=== PATIENT | male | born 1940 | race Caucasian/White ===

== ENCOUNTER 2017-03-29 18:28 | Emergency (ER) | payer OTHER ==
[~2017-03-29 18:28] MED LIST: ARIC10TA; CELE40TA; MEMA10
[2017-03-29 19:45] VITALS: BP 153/91; PULSE 89; RESP 18; TEMP 98; O2SAT 96
[2017-03-29 20:51] LABS: AUTOMATED NEUTROPHIL # 6.6 TH/MM3 (1.8-7.7); BASOPHIL % 0.5 % (0.0-2.0); EOSINOPHIL # 0.1 TH/MM3 (0-0.4); HEMATOCRIT 44.4 % (39.0-51.0); HEMO FLAGS DIFF FINAL; LYMPH % 18.4 % (9.0-44.0); LYMPHOCYTE # 1.7 TH/MM3 (1.0-4.8); MEAN CELL VOLUME 92.2 FL (80.0-100.0); MEAN CORPUSCULAR HEMOGLOBIN 31.5 PG (27.0-34.0); MEAN CORPUSCULAR HGB CONC 34.1 % (32.0-36.0); MONO % 8.8 % (0.0-8.0); NEUT % 71.3 % (16.0-70.0); PLATELET COUNT 205 TH/MM3 (150-450); RED BLOOD COUNT 4.82 MIL/MM3 (4.50-5.90); RED CELL DISTRIBUTION WIDTH 13.1 % (11.6-17.2); WHITE BLOOD COUNT 9.2 TH/MM3 (4.0-11.0)
[2017-03-29 20:57] LABS: BLOOD, URINE NEG (NEG); GLUCOSE,URINE NEG (NEG); KETONE, URINE NEG (NEG); NITRITE,URINE NEG (NEG); PH, URINE 5.5 (5.0-8.5); URINE COLOR LIGHT-YELLOW (YELLW/STRAW)
[2017-03-29 20:59] LABS: COMMENT (UR) CULT NOT INDICATED; CULTURE IF INDICATED CULT NOT INDICATED
[2017-03-29 21:09] LABS: ANION GAP 8 MEQ/L (5-15); AST (GOT) 24 U/L (15-37); BICARBONATE 23.7 MEQ/L (21.0-32.0); BLOOD UREA NITROGEN 13 MG/DL (7-18); CHLORIDE 104 MEQ/L (98-107); GLOMERULAR FILTRATION RATE 82 ML/MIN (>89); POTASSIUM 3.8 MEQ/L (3.5-5.1); SODIUM (NA) 136 MEQ/L (136-145)
[2017-03-29 21:11] LABS: ALT (GPT) 42 U/L (12-78)
[2017-03-29 21:12] LABS: ALKALINE PHOSPHATASE 84 U/L (45-117)
--- NOTE | 2017-03-29 21:47 | PD ---
HPI Chief Complaint: Psychiatric Symptoms Time Seen by Provider: 21:43 Travel History International Travel<30 days: No Contact w/Intl Traveler<30days: No Traveled to known affect area: No History of Present Illness HPI 76-year-old male presents under Linder act initiated by the Police Department. According to his paperwork the patient has been not been taking his medication for his diagnosed depression. He has been increasingly irrational towards his and he reportedly garnished a firearm and advised his that she should be scared. The patient reports that he has a history of PTSD, he is prescribed Celexa. He reports that recently he and his went on vacation to [place] and they returned last week. He reports that his was not happy with the condition at the house was in when they arrived home. The verbal argument today stem from the fact that they have another vacation to [facility] coming up in April and the patient's does not want to leave the house and his current condition. He reports that she became increasingly frustrated at him and called the police with the above report. The patient disputes the events of the Linder act. He says that he never garnished any firearm, did not threaten his . He denies any suicidal or homicidal ideation. He denies any drug use. He endorses occasional beer ingestion. He has no other complaints. [facility] Past Medical History Anxiety: Yes Heart Rhythm Problems: No Cardiac Catheterization: No Cardiovascular Problems: No High Cholesterol: No Diabetes: No Diminished Hearing: No Hypertension: No Myocardial Infarction: No Past Surgical History Body Medical Devices: HYPERLIPIDEMIA; POST TRAUMATIC STRESS DISORDER FROM [place] Coronary Artery Bypass Graft: No Social History Alcohol Use: Yes Tobacco Use: Yes Allergies-Medications (Allergen,Severity, Reaction): Coded Allergies: No Known Allergies (Verified , 03/29/17) Reported Meds & Prescriptions Reported Meds & Active Scripts Active Reported Aricept (Donepezil HCl) 10 Mg Tab Namenda (Memantine) 10 Mg Tab Celexa (Citalopram Hydrobromide) 40 Mg Tab Review of Systems Except as stated in HPI: all other systems reviewed are Neg Physical Exam Narrative GENERAL: Pleasant well developed well-nourished male in no acute distress sitting upright on chair. SKIN: Warm and dry. HEAD: Atraumatic. Normocephalic. EYES: Pupils equal and round. No scleral icterus. No injection or drainage. ENT: No nasal bleeding or discharge. Mucous membranes pink and moist. NECK: Trachea midline. No JVD. CARDIOVASCULAR: Regular rate and rhythm. No murmur appreciated. RESPIRATORY: No accessory muscle use. Clear to auscultation. Breath sounds equal bilaterally. GASTROINTESTINAL: Abdomen soft, non-tender, nondistended. Hepatic and splenic margins not palpable. MUSCULOSKELETAL: No obvious deformities. No clubbing. No cyanosis. No edema. NEUROLOGICAL: Awake and alert. No obvious cranial nerve deficits. Motor grossly within normal limits. Normal speech. PSYCHIATRIC: Appropriate mood and affect; insight and judgment normal. Data Data Last Documented VS Vital Signs Date Time Temp Pulse Resp B/P (MAP) Pulse Ox O2 Delivery O2 Flow Rate FiO2 03/29/17 19:45 98.0 89 18 153/91 (111) 96 Orders Orders Complete Blood Count With Diff (03/29/17 19:51) Comprehensive Metabolic Panel (03/29/17 19:51) Urinalysis - C+S If Indicated (03/29/17 19:51) Psych Screen (03/29/17 19:51) Diet Regular Basic (03/30/17 Breakfast) Diet Regular Basic (03/29/17 Dinner) Labs Laboratory Tests Test 03/29/17 19:00 03/29/17 20:15 Urine Color LIGHT-YELLOW Urine Turbidity CLEAR Urine pH 5.5 Urine Specific [place] 1.006 Urine Protein NEG mg/dL Urine Glucose (UA) NEG mg/dL Urine Ketones NEG mg/dL Urine Occult Blood NEG Urine Nitrite NEG Urine Bilirubin NEG Urine Urobilinogen LESS THAN 2.0 MG/DL Urine Leukocyte Esterase NEG Urine WBC LESS THAN 1 /hpf Microscopic Urinalysis Comment CULT NOT INDICATED White Blood Count 9.2 TH/MM3 Red Blood Count 4.82 MIL/MM3 Hemoglobin 15.2 GM/DL Hematocrit 44.4 % Mean Corpuscular Volume 92.2 FL Mean Corpuscular Hemoglobin 31.5 PG Mean Corpuscular Hemoglobin Concent 34.1 % Red Cell Distribution Width 13.1 % Platelet Count 205 TH/MM3 Mean Platelet Volume 7.5 FL Neutrophils (%) (Auto) 71.3 % Lymphocytes (%) (Auto) 18.4 % Monocytes (%) (Auto) 8.8 % Eosinophils (%) (Auto) 1.0 % Basophils (%) (Auto) 0.5 % Neutrophils # (Auto) 6.6 TH/MM3 Lymphocytes # (Auto) 1.7 TH/MM3 Monocytes # (Auto) 0.8 TH/MM3 Eosinophils # (Auto) 0.1 TH/MM3 Basophils # (Auto) 0.0 TH/MM3 CBC Comment DIFF FINAL Differential Comment Blood Urea Nitrogen 13 MG/DL Creatinine 0.90 MG/DL Random Glucose 89 MG/DL Total Protein 7.2 GM/DL Albumin 3.9 GM/DL Calcium Level 9.0 MG/DL Alkaline Phosphatase 84 U/L Aspartate Amino Transf (AST/SGOT) 24 U/L Alanine Aminotransferase (ALT/SGPT) 42 U/L Total Bilirubin 1.0 MG/DL Sodium Level 136 MEQ/L Potassium Level 3.8 MEQ/L Chloride Level 104 MEQ/L Carbon Dioxide Level 23.7 MEQ/L Anion Gap 8 MEQ/L Estimat Glomerular Filtration Rate 82 ML/MIN MDM Medical Decision Making Medical Screen Exam Complete: Yes Emergency Medical Condition: Yes Medical Record Reviewed: Yes Differential Diagnosis Adjustment reaction, PTSD, major depressive disorder, depressive disorder not otherwise specified, acute psychosis Narrative Course 76-year-old male under Linder act for psychiatric evaluation. He has no medical complaints. His lab work is unremarkable. Mental health screening discussed with the patient. Psychiatric screen ordered. The patient is medically cleared for psychiatric disposition. Diagnosis Primary Impression: Adjustment reaction Qualified Codes: F43.20 - Adjustment disorder, unspecified Dami Murcia Mar 29, 2017 21:47
[2017-03-29 23:53] VITALS: BP 182/101; PULSE 75; RESP 18; O2SAT 98
[2017-03-30] MEDS ORDERED: ASPI81CH CHEW (00:07)
[2017-03-30] MEDS ORDERED: CITA40TA4 PO (00:07)
[2017-03-30 03:36] VITALS: BP 131/82; PULSE 64; RESP 16; O2SAT 98
[2017-03-30 07:30] VITALS: BP 154/103; PULSE 64; RESP 16; O2SAT 96
--- NOTE | 2017-03-30 12:26 | PD ---
Data Data Last Documented VS Vital Signs Date Time Temp Pulse Resp B/P (MAP) Pulse Ox O2 Delivery O2 Flow Rate FiO2 03/30/17 07:30 64 16 154/103 (120) 96 Room Air 03/29/17 19:45 98.0 Orders Orders Complete Blood Count With Diff (03/29/17 19:51) Comprehensive Metabolic Panel (03/29/17 19:51) Urinalysis - C+S If Indicated (03/29/17 19:51) Psych Screen (03/29/17 19:51) Diet Regular Basic (03/30/17 Breakfast) Diet Regular Basic (03/29/17 Dinner) Citalopram (Celexa) (03/30/17 12:30) Aspirin Chew (Aspirin Chew) (03/30/17 12:30) Labs Laboratory Tests Test 03/29/17 19:00 03/29/17 20:15 Urine Color LIGHT-YELLOW Urine Turbidity CLEAR Urine pH 5.5 Urine Specific [place] 1.006 Urine Protein NEG mg/dL Urine Glucose (UA) NEG mg/dL Urine Ketones NEG mg/dL Urine Occult Blood NEG Urine Nitrite NEG Urine Bilirubin NEG Urine Urobilinogen LESS THAN 2.0 MG/DL Urine Leukocyte Esterase NEG Urine WBC LESS THAN 1 /hpf Microscopic Urinalysis Comment CULT NOT INDICATED White Blood Count 9.2 TH/MM3 Red Blood Count 4.82 MIL/MM3 Hemoglobin 15.2 GM/DL Hematocrit 44.4 % Mean Corpuscular Volume 92.2 FL Mean Corpuscular Hemoglobin 31.5 PG Mean Corpuscular Hemoglobin Concent 34.1 % Red Cell Distribution Width 13.1 % Platelet Count 205 TH/MM3 Mean Platelet Volume 7.5 FL Neutrophils (%) (Auto) 71.3 % Lymphocytes (%) (Auto) 18.4 % Monocytes (%) (Auto) 8.8 % Eosinophils (%) (Auto) 1.0 % Basophils (%) (Auto) 0.5 % Neutrophils # (Auto) 6.6 TH/MM3 Lymphocytes # (Auto) 1.7 TH/MM3 Monocytes # (Auto) 0.8 TH/MM3 Eosinophils # (Auto) 0.1 TH/MM3 Basophils # (Auto) 0.0 TH/MM3 CBC Comment DIFF FINAL Differential Comment Blood Urea Nitrogen 13 MG/DL Creatinine 0.90 MG/DL Random Glucose 89 MG/DL Total Protein 7.2 GM/DL Albumin 3.9 GM/DL Calcium Level 9.0 MG/DL Alkaline Phosphatase 84 U/L Aspartate Amino Transf (AST/SGOT) 24 U/L Alanine Aminotransferase (ALT/SGPT) 42 U/L Total Bilirubin 1.0 MG/DL Sodium Level 136 MEQ/L Potassium Level 3.8 MEQ/L Chloride Level 104 MEQ/L Carbon Dioxide Level 23.7 MEQ/L Anion Gap 8 MEQ/L Estimat Glomerular Filtration Rate 82 ML/MIN MDM Supervised Visit with NEGRA: Yes Narrative Course The history, exam, and medical decision-making in the associated midlevel provider note were completed with my assistance. I reviewed and agree with the findings presented. I attest that I had a [id number] encounter with the patient on the same day, and personally performed and documented my assessment and findings in the medical record. *My assessment and Findings: This is a 76-year-old male who presents to the emergency department under a Linder act written by police because he had an altercation with his . Per the Linder act he threatening her with a firearm. The patient denies this. The psychiatrist evaluated the patient and didn't think he may Linder act criteria. Case management will facilitate a safe discharge and possibly will have police escort the patient to the house to prevent further conflict between him and his . Diagnosis Primary Impression: Adjustment reaction Qualified Codes: F43.20 - Adjustment disorder, unspecified Patient Instructions: General Instructions Additional Instruction: If you develop thoughts of hurting herself or others or if you feel unsafe return to the emergency department immediately. Med/Other Pt SpecificInfo: No Change to Meds Disposition: 01 DISCHARGE HOME Condition: Stable Frances Aponte MD Mar 30, 2017 12:26
[2017-03-30] MEDS ORDERED: CITALOPRAM HYDROBROMIDE 40 MG TAB PO SCH (12:30)
[2017-03-30] MEDS ORDERED: ASPIRIN 81 MG CHEW TAB CHEW ONE (12:30)
--- NOTE | 2017-03-30 13:22 | PD ---
History of Present Illness Chief Complaint: Psychiatric Symptoms Travel History International Travel<30 Days: No Contact w/Intl Traveler<30days: No Known affected area: No Legal Status Legal Status: Linder Act Linder Act Signed By: Jonathon Mahoney History of Present Illness: 76-year-old male, very pleasant, calm, appropriate and cooperative who has been for approximately 20 years to a woman who was recently asked him to sign his house over to her. Patient reports a verbal argument with her but denies what was included in the police Linder act. Patient states his is the one that told fictitious elements to the police, both over the telephone and when they arrived. Patient states he does have firearms in the home but he did not wave 1 in her face and did not threaten to kill himself or anyone else. He is cognitively intact, with no psychotic symptoms or evidence of cognitive impairment. He denies any suicidal or homicidal ideation, plan or intent. He is verbally brennen for safety and he is competent to do so. PFSH Past Medical History Anxiety: Yes Heart Rhythm Problems: No Cancer: Yes (bladder cancer - treatment done at the [place]) Cardiac Catheterization: No Cardiovascular Problems: No High Cholesterol: No Diabetes: No Diminished Hearing: No Hypertension: No Medical other: Yes (HYPERLIPIDEMIA; POST TRAUMATIC STRESS DISORDER FROM [place] ) Myocardial Infarction: No Triglycerides - High: Yes Past Surgical History Body Medical Devices: HYPERLIPIDEMIA; POST TRAUMATIC STRESS DISORDER FROM [place] Coronary Artery Bypass Graft: No Psychiatric History Psychiatric History Hx Psychiatric Treatment: HX: DEPRESSION AND PTSD. Treated by the [place] system. History of Inpatient Treatment: No Guns or firearms in home: Yes Social History Hx Alcohol Use: Yes (occassionally) Hx Tobacco Use: No Hx Substance Use: No Hx of Substance Use Treatment: No Allergies-Medications (Allergen,Severity, Reaction): Coded Allergies: No Known Allergies (Verified , 03/30/17) Reported Meds & Prescriptions Reported Meds & Active Scripts Active Reported Aspirin 81 Mg Chew 81 Mg CHEW ONCE Citalopram (Citalopram Hydrobromide) 40 Mg Tab 40 Mg PO DAILY Review of Systems Except as stated in HPI: all other systems reviewed are Neg Exam Alert: Yes [place]: Person, Place, Date, Situation Mood: Calm Affect: Appropriate, Euthymic Speech: Clear, Logical Eye Contact: Normal Memory Intact: Immediate, Recent, Remote Insight/Judgement Adequate MDM Medical Decision Making Medical Record Reviewed: Yes Assessment/Plan Patient was interviewed at bedside, medical record was reviewed and case was discussed with nurse. Patient does not currently meet criteria for Linder act or involuntary psychiatric hospitalization. He does request a case reviewer call his and act as an intermediary because he feels his is being unreasonable and irrational. While this physician is unable to assess the patient's , the patient himself is calm, pleasant, rational and brennen for safety. Orders Orders Complete Blood Count With Diff (03/29/17 19:51) Comprehensive Metabolic Panel (03/29/17 19:51) Urinalysis - C+S If Indicated (03/29/17 19:51) Psych Screen (03/29/17 19:51) Diet Regular Basic (03/30/17 Breakfast) Diet Regular Basic (03/29/17 Dinner) Citalopram (Celexa) (03/30/17 12:30) Aspirin Chew (Aspirin Chew) (03/30/17 12:30) Results Vital Signs Date Time Temp Pulse Resp B/P (MAP) Pulse Ox O2 Delivery O2 Flow Rate FiO2 03/30/17 12:44 03/30/17 07:30 64 16 154/103 (120) 96 Room Air 03/30/17 03:36 64 16 131/82 (98) 98 Room Air 03/29/17 23:53 75 18 182/101 (128) 98 Room Air 03/29/17 19:45 98.0 89 18 153/91 (111) 96 Laboratory Tests Test 03/29/17 19:00 03/29/17 20:15 Urine Color LIGHT-YELLOW Urine Turbidity CLEAR Urine pH 5.5 Urine Specific [place] 1.006 Urine Protein NEG Urine Glucose (UA) NEG Urine Ketones NEG Urine Occult Blood NEG Urine Nitrite NEG Urine Bilirubin NEG Urine Urobilinogen LESS THAN 2.0 Urine Leukocyte Esterase NEG Urine WBC LESS THAN 1 Microscopic Urinalysis Comment CULT NOT INDICATED White Blood Count 9.2 Red Blood Count 4.82 Hemoglobin 15.2 Hematocrit 44.4 Mean Corpuscular Volume 92.2 Mean Corpuscular Hemoglobin 31.5 Mean Corpuscular Hemoglobin Concent 34.1 Red Cell Distribution Width 13.1 Platelet Count 205 Mean Platelet Volume 7.5 Neutrophils (%) (Auto) 71.3 Lymphocytes (%) (Auto) 18.4 Monocytes (%) (Auto) 8.8 Eosinophils (%) (Auto) 1.0 Basophils (%) (Auto) 0.5 Neutrophils # (Auto) 6.6 Lymphocytes # (Auto) 1.7 Monocytes # (Auto) 0.8 Eosinophils # (Auto) 0.1 Basophils # (Auto) 0.0 CBC Comment DIFF FINAL Differential Comment Blood Urea Nitrogen 13 Creatinine 0.90 Random Glucose 89 Total Protein 7.2 Albumin 3.9 Calcium Level 9.0 Alkaline Phosphatase 84 Aspartate Amino Transf (AST/SGOT) 24 Alanine Aminotransferase (ALT/SGPT) 42 Total Bilirubin 1.0 Sodium Level 136 Potassium Level 3.8 Chloride Level 104 Carbon Dioxide Level 23.7 Anion Gap 8 Estimat Glomerular Filtration Rate 82 Diagnosis Primary Impression: Adjustment disorder with mixed disturbance of emotions and conduct Departure Forms: Tests/Procedures Patient Instructions: General Instructions Additional Instructions: If you develop thoughts of hurting herself or others or if you feel unsafe return to the emergency department immediately. Disposition: 01 DISCHARGE HOME Condition: Stable Raymond Bain MD Mar 30, 2017 13:22
== END 2017-03-30 12:51 | disposition home or self-care (01) ==
LOC: NEDAMB 18:28 → NEPD 03-30 12:51
DX: F43.25 Adjustment disorder with mixed disturbance of emotions and conduct (principal); Z72.0 Tobacco use; Z86.59 Personal history of other mental and behavioral disorders
CPT/HCPCS: 80053; 81001; 85025; 99284